=== PATIENT | female | born 1940 | race African-American/Black ===

== ENCOUNTER 2016-10-21 07:58 | Observation (INO) | payer MEDICAID, MEDICARE ==
[2016-10-21] VITALS (7 sets, daily range): BP systolic 92–152; RESP 16; TEMP 97–98.6; Ht 157.5 cm; Wt 93.3 kg
[~2016-10-21] VITALS: Ht 157.5 cm; Wt 93.3 kg
[2016-10-21] MEDS ORDERED: SODIUM CHLORIDE 0.9% 1,000 ML IV PRN (12:05)
[2016-10-21] MEDS ORDERED: ALBUMIN HUMAN 25GM (25%) 100 ML IV PRN (12:05)
[2016-10-21] MEDS ORDERED: CINACALCET 30 MG TAB PO SCH (12:05)
[2016-10-21] MEDS ORDERED: NITROGLYCERIN SL 0.4 MG TAB SL PRN (12:05)
[2016-10-21] MEDS ORDERED: SODIUM CHLORIDE 0.9% 1,000 ML IV SCH ×2 (12:05)
[2016-10-21] MEDS ORDERED: ONDANSETRON 4 MG VIAL IV PRN (12:05)
[2016-10-21] MEDS: ASPIRIN 81 MG CHEW TAB PO SCH (12:28)
[2016-10-21] MEDS ORDERED: ACETAMINOPHEN 325 MG TAB PO PRN (12:45)
[2016-10-21] MEDS: CALCIUM ACETATE 667MG CAP PO SCH ×2 (13:08→17:40)
[2016-10-21] MEDS: AMIODARONE 200 MG TAB PO SCH (13:08)
[2016-10-21] MEDS: METOPROLOL XL 50 MG TAB PO SCH ×2 (13:09→21:50)
[2016-10-21] MEDS: TICAGRELOR 90 MG TAB PO SCH ×2 (13:09→21:49)
[2016-10-21] MEDS: MELOXICAM 7.5 MG TAB PO SCH (13:09)
[2016-10-21] MEDS ORDERED: ALPRAZOLAM 0.25 MG TAB PO PRN (14:25)
[2016-10-21] MEDS: Furosemide 80 MG TAB PO SCH (17:40)
[2016-10-21] MEDS ORDERED: quiNINE SULF 324 MG CAP PO SCH (21:00)
[2016-10-22] VITALS (8 sets, daily range): BP systolic 102–112; RESP 16–20; TEMP 97.8–98.6
[2016-10-22] MEDS: ASPIRIN 81 MG CHEW TAB PO SCH (09:00)
[2016-10-22] MEDS: CALCIUM ACETATE 667MG CAP PO SCH ×2 (09:00→12:00)
[2016-10-22] MEDS: Furosemide 80 MG TAB PO SCH (09:00)
[2016-10-22] MEDS: METOPROLOL XL 50 MG TAB PO SCH (09:00)
[2016-10-22] MEDS: TICAGRELOR 90 MG TAB PO SCH (09:00)
[2016-10-22] MEDS: MELOXICAM 7.5 MG TAB PO SCH (09:00)
[2016-10-22] MEDS: AMIODARONE 200 MG TAB PO SCH (09:00)
== END 2016-10-22 10:44 | disposition home or self-care (01) ==
LOC: ENRESERVTM → ENRESERVDT → ER 07:58 → ENPENDDIS 09:57 → EMR 09:57 → 5THE 12:25
PROVIDERS: ADMIT Internal Medicine Nephrology; ATTEND Internal Medicine Nephrology
DX: R09.02 Hypoxemia (principal); E86.9 Volume depletion, unspecified; I13.2 Hypertensive heart and chronic kidney disease with heart failure and with stage 5 chronic kidney disease, or end stage renal disease; N18.6 End stage renal disease; I50.9 Heart failure, unspecified; Z99.2 Dependence on renal dialysis; G40.909 Epilepsy, unspecified, not intractable, without status epilepticus; M19.90 Unspecified osteoarthritis, unspecified site; Z86.73 Personal history of transient ischemic attack (TIA), and cerebral infarction without residual deficits; Z79.82 Long term (current) use of aspirin
CPT/HCPCS: 36415; 71010; 80053; 82553; 82947; 83880; 84484; 85007; 85027; 93005; 97799; 99284; G0378; 94799

== ENCOUNTER 2016-11-07 00:34 | Inpatient (IN) | payer MEDICARE ==
[~2016-11-07] VITALS: Ht 157.5 cm; Wt 92.7 kg
[2016-11-07] MEDS ORDERED: DUONEB INH ONE (04:36)
[2016-11-07] MEDS ORDERED: ACETAMINOPHEN 325 MG TAB PO PRN (05:10)
[2016-11-07] MEDS ORDERED: DUONEB INH PRN (05:10)
[2016-11-07] MEDS ORDERED: ONDANSETRON 4 MG VIAL IV PUSH PRN (05:10)
[2016-11-07 06:31] VITALS: BP_SYST 114; RESP 18; TEMP 98.4
[2016-11-07 06:32] VITALS: Ht 157.5 cm; Wt 92.7 kg
[2016-11-07] MEDS ORDERED: SODIUM CHLORIDE 0.9% 1,000 ML IV SCH (08:10)
[2016-11-07 10:16] VITALS: RESP 22
[2016-11-07 11:07] VITALS: BP_SYST 113; RESP 22; TEMP 98
[2016-11-07 19:38] VITALS: BP_SYST 147; RESP 18; TEMP 98.4
[2016-11-07] MEDS: AMIODARONE 200 MG TAB PO SCH (20:22)
[2016-11-07] MEDS: ASPIRIN 81 MG CHEW TAB PO SCH (20:22)
[2016-11-07] MEDS: TICAGRELOR 90 MG TAB PO SCH ×2 (20:22→21:00)
[2016-11-07] MEDS: Furosemide 80 MG TAB PO SCH (20:22)
[2016-11-07 20:44] VITALS: BP_SYST 110; RESP 18; TEMP 97.8
[2016-11-07 23:13] VITALS: BP_SYST 112; RESP 18; TEMP 99
[2016-11-08 03:09] VITALS: BP_SYST 128; RESP 20; TEMP 98.6
[2016-11-08] MEDS: SODIUM CHLORIDE 0.9% FLUSH BAG 500 ML IV SCH (05:54)
[2016-11-08 07:28] VITALS: BP_SYST 118; RESP 18; TEMP 99.1
[2016-11-08] MEDS: AMIODARONE 200 MG TAB PO SCH (08:35)
[2016-11-08] MEDS: TICAGRELOR 90 MG TAB PO SCH ×2 (08:35→21:23)
[2016-11-08] MEDS: ASPIRIN 81 MG CHEW TAB PO SCH (08:35)
[2016-11-08] MEDS: Furosemide 80 MG TAB PO SCH ×2 (08:36→17:54)
[2016-11-08 11:00] VITALS: BP_SYST 116; TEMP 99
[2016-11-08] MEDS ORDERED: ONDANSETRON 4 MG VIAL IV PRN (11:25)
[2016-11-08] MEDS ORDERED: ALBUMIN HUMAN 25GM (25%) 100 ML IV PRN (11:25)
[2016-11-08] MEDS ORDERED: SODIUM CHLORIDE 0.9% 1,000 ML IV PRN (11:25)
[2016-11-08] MEDS ORDERED: SODIUM CHLORIDE 0.9% 1,000 ML IV SCH (11:25)
[2016-11-08 17:34] VITALS: BP_SYST 145; RESP 18; TEMP 98.6
[2016-11-08 17:36] VITALS: BP_SYST 120; RESP 18; TEMP 98.8
[2016-11-08 20:00] VITALS: BP_SYST 102; RESP 20; TEMP 98.8
[2016-11-09] VITALS (7 sets, daily range): BP systolic 109–139; RESP 16–20; TEMP 98.7–101.2
[2016-11-09] MEDS: SODIUM CHLORIDE 0.9% FLUSH BAG 500 ML IV SCH (05:02)
[2016-11-09] MEDS: AMIODARONE 200 MG TAB PO SCH (09:14)
[2016-11-09] MEDS: Furosemide 80 MG TAB PO SCH (09:14)
[2016-11-09] MEDS: TICAGRELOR 90 MG TAB PO SCH (09:14)
[2016-11-09] MEDS: ASPIRIN 81 MG CHEW TAB PO SCH (09:14)
== END 2016-11-09 16:47 | disposition home or self-care (01) | DRG 291 ==
LOC: ENRESERVTM → ENRESERVDT → CANRESERV → ER 00:34 → EMR 04:52 → 4THE 05:43 → ENPENDDIS 11-08 15:45 → OBSVTOIN 11-08 15:45
PROVIDERS: ADMIT Internal Medicine Nephrology; ATTEND Internal Medicine Nephrology
PROC: 5A1D60Z (ICD-10-PCS; principal; 2016-11-07)
DX: I13.2 Hypertensive heart and chronic kidney disease with heart failure and with stage 5 chronic kidney disease, or end stage renal disease (principal); N18.6 End stage renal disease; C92.10 Chronic myeloid leukemia, BCR/ABL-positive, not having achieved remission; E11.22 Type 2 diabetes mellitus with diabetic chronic kidney disease; D59.2 Drug-induced nonautoimmune hemolytic anemia; I50.33 Acute on chronic diastolic (congestive) heart failure; Z99.2 Dependence on renal dialysis; I48.0 Paroxysmal atrial fibrillation; E11.51 Type 2 diabetes mellitus with diabetic peripheral angiopathy without gangrene; T45.1X5A Adverse effect of antineoplastic and immunosuppressive drugs, initial encounter
CPT/HCPCS: 36415; 36430; 71010; 80053; 82553; 83880; 84484; 85007; 85027; 85610; 86850; 86900; 86901; 86902; 86922; 87804; 93005; 94640; 94799